=== PATIENT | female | born 1965 | race Caucasian/White ===

== ENCOUNTER → 2017-02-17 | Outpatient (CLI) | payer BC ==
[~2017-02-17] MED LIST: LEVOTHYROXINE PO; NORCO 5-325 TA1 EACH PO
== END ==
LOC: RAD 01:30
DX: Z12.31 Encounter for screening mammogram for malignant neoplasm of breast (principal)

== ENCOUNTER → 2018-03-11 | Outpatient (CLI) | payer BC | LOC: RAD 02:55 | DX: Z12.31 Encounter for screening mammogram for malignant neoplasm of breast (principal) ==